=== PATIENT | female | born 1970 ===

== ENCOUNTER 2022-09-25 05:57 | Day surgery (SDC) | payer OTHER ==
[~2022-09-25] VITALS: Ht 165.1 cm; Wt 88.9 kg
[~2022-09-25 05:57] MED LIST: COZAAR25 MG PO; GRALISE600 MG PO; METFORMIN HCL500 M3 PO
== END 2022-09-25 12:45 | disposition home or self-care (01) ==
LOC: CIR.AMB 05:57
PROVIDERS: ATTEND Orthopaedic Surgery Hand Surgery
DX: G56.01 Carpal tunnel syndrome, right upper limb (principal); Z91.013 Allergy to seafood; Z20.822 Contact with and (suspected) exposure to COVID-19; I10 Essential (primary) hypertension